=== PATIENT | male | born 1990 | race Two or more races ===

== ENCOUNTER 2017-04-30 19:23 | Emergency (ER) | payer SELFPAY ==
[~2017-04-30] VITALS: Ht 180.3 cm; Wt 70.0 kg
[2017-04-30 19:27] VITALS: BP 139/88; PULSE 88; RESP 15; TEMP 98.2; O2SAT 100
--- NOTE | 2017-04-30 21:44 | PD ---
HPI Chief Complaint: Abdominal Pain Time Seen by Provider: 21:41 Travel History International Travel<30 days: No Contact w/Intl Traveler<30days: No Traveled to known affect area: No History of Present Illness HPI 26-year-old male presents to emergency department with complaints of nausea, vomiting, abdominal pain and cramping. He states that he has had approximately 6 episodes of vomiting earlier today. Last episode around 3:00. He denies any fever or chills. No headache, runny nose, sore throat. He has had a slight cough. He states the pain is sharp and stabbing diffusely in the abdomen more so in the lower abdomen patient rates his pain a 7 -8/10 at its worse. Now it is mild. He has a small amount of loose stool but no significant diarrhea. No urinary symptoms. No rashes or lesions. He does note that he did have a hamburger around 2 or 3:00 this afternoon. PFSH Past Medical History Medical History: Denies Significant Hx Tetanus Vaccination: < 5 Years Past Surgical History Surgical History: No Previous Surgery Social History Alcohol Use: Yes Tobacco Use: Yes (1PPD) Substance Use: No Allergies-Medications (Allergen,Severity, Reaction): Coded Allergies: No Known Allergies (Unverified , 04/30/17) Reported Meds & Prescriptions Reported Meds & Active Scripts Active No Active Prescriptions or Reported Medications Review of Systems Except as stated in HPI: all other systems reviewed are Neg Physical Exam Narrative GENERAL: Well-developed, well-nourished in no acute distress. Nontoxic appearing. HEAD: Normocephalic, atraumatic. EYES: Pupils equal round and reactive. Extraocular motions intact. No scleral icterus. No injection or drainage. ENT: TMs clear without erythema. The external auditory canals clear. Nose: clear . Posterior pharynx is pink and moist. No tonsillar edema or exudate. Uvula midline. Airway patent. NECK: Trachea midline.Supple, nontender, moves head freely. No central bony tenderness or spasm. CARDIOVASCULAR: Regular rate and rhythm without murmurs, gallops, or rubs. RESPIRATORY: Clear to auscultation. Breath sounds equal bilaterally. No wheezes , rales, or rhonchi. GASTROINTESTINAL: Abdomen soft, non-tender, nondistended. No hepato-splenomegaly , or palpable masses. No guarding. EXTREMITIES: No clubbing, cyanosis, or edema. No joint tenderness, effusion, or edema noted. BACK: Nontender without deformity or crepitance. No flank tenderness. Data Data Last Documented VS Vital Signs Date Time Temp Pulse Resp B/P Pulse Ox O2 Delivery O2 Flow Rate FiO2 04/30/17 19:27 98.2 88 15 139/88 100 Room Air Orders Iv Access Insert/Monitor (04/30/17 21:39) Sodium Chlor 0.9% 1000 Ml Inj (Ns 1000 M (04/30/17 21:45) Diphenhydramine Inj (Benadryl Inj) (04/30/17 21:45) Metoclopramide Inj (Reglan Inj) (04/30/17 21:45) Hyoscyamine (Levsin) (04/30/17 21:45) Oral Rehydration (04/30/17 22:13) MDM Medical Decision Making Medical Screen Exam Complete: Yes Emergency Medical Condition: Yes Medical Record Reviewed: Yes Differential Diagnosis Differential diagnosis: Acute appendicitis, gastritis, peptic ulcer disease, GERD, gastroenteritis, dehydration Narrative Course IV access is obtained. Patient given a liter bolus of normal saline, 50 Nuria is a Benadryl and Reglan 10 mg IV. Levsin 0.25 mg sublingual. The patient's exam did not reveal any significant tenderness. No guarding or rebound. The patient will be symptomatic treatment here in the ER and reevaluated. The patient has taken by mouth fluids. He is feeling much better. He's been sleeping in examination room. He is awoken and he states that he is improved and would like to go home. This is vomiting, abdominal pain Diagnosis Primary Impression: Vomiting Qualified Code: R11.2 - Non-intractable vomiting with nausea, unspecified vomiting type Additional Impression: Abdominal pain Qualified Code: R10.84 - Generalized abdominal pain Patient Instructions: General Instructions Additional Instructions: Rest. Clear liquids for 24 hours. Tylenol or Advil for any pain. Recheck with the clinic at school tomorrow or return to the ER. Return to the ER sooner if any problems. Scripts No Active Prescriptions or Reported Meds Disposition: 01 DISCHARGE HOME Condition: Stable Lenny Ba Apr 30, 2017 21:44
[2017-04-30] MEDS ORDERED: diphenhydrAMINE HCL 50 MG/ML VIAL IV PUSH ONE (21:45)
[2017-04-30] MEDS ORDERED: METOCLOPRAMIDE HCL 10 MG/2 ML VIAL IV PUSH ONE (21:45)
[2017-04-30] MEDS ORDERED: HYOSCYAMINE 0.125 MG TAB SL ONE (21:45)
[2017-04-30] MEDS ORDERED: SODIUM CHLOR 0.9% 1000 ML INJ 1,000 ML IV ONE (21:45)
== END 2017-04-30 23:56 | disposition home or self-care (01) ==
LOC: NEPD 19:23
DX: R11.2 Nausea with vomiting, unspecified (principal); R10.84 Generalized abdominal pain
CPT/HCPCS: 96374; 96375; 99284; J1200; J2765; J7030

== ENCOUNTER 2017-05-06 03:50 | Emergency (ER) | payer OTHER ==
[2017-05-06 04:02] VITALS: BP 135/97; PULSE 106; RESP 18; TEMP 98.1; O2SAT 96
[2017-05-06 04:50] LABS: MEAN CORPUSCULAR HGB CONC 36.4 % (32.0-36.0)
[2017-05-06 05:11] LABS: AUTOMATED NEUTROPHIL # 4.9 TH/MM3 (1.8-7.7); BASOPHIL # 0.1 TH/MM3 (0-0.2); BASOPHIL % 0.9 % (0.0-2.0); EOSINOPHIL # 0.2 TH/MM3 (0-0.4); EOSINOPHIL % 1.8 % (0.0-4.0); LYMPH % 36.1 % (9.0-44.0); LYMPHOCYTE # 3.3 TH/MM3 (1.0-4.8); MONO % 7.8 % (0.0-8.0); NEUT % 53.4 % (16.0-70.0); PLATELET COUNT 227 TH/MM3 (150-450); RED BLOOD COUNT 4.99 MIL/MM3 (4.50-5.90); RED CELL DISTRIBUTION WIDTH 13.3 % (11.6-17.2); WHITE BLOOD COUNT 9.2 TH/MM3 (4.0-11.0)
--- NOTE | 2017-05-06 05:14 | PD ---
HPI Chief Complaint: Psychiatric Symptoms Time Seen by Provider: 05:12 Travel History International Travel<30 days: No Contact w/Intl Traveler<30days: No Traveled to known affect area: No History of Present Illness HPI Patient comes in under Hope act by police for reported suicidal ideations. Patient denies any suicidal or homicidal ideations. Patient states that he is drunk currently. Patient denies any medical concerns. Denies any chest pain, shortness breath, fevers, nausea, vomiting, or headache. Patient denies anything making his symptoms better or worse. [facility] Past Medical History Medical History: Denies Significant Hx Immunizations Current: Yes Past Surgical History Surgical History: No Previous Surgery Social History Alcohol Use: Yes Tobacco Use: Yes (1PPD) Substance Use: No Allergies-Medications (Allergen,Severity, Reaction): Coded Allergies: No Known Allergies (Unverified , 05/06/17) Reported Meds & Prescriptions Reported Meds & Active Scripts Active No Active Prescriptions or Reported Medications Review of Systems Except as stated in HPI: all other systems reviewed are Neg Physical Exam Narrative GENERAL: Well-developed, well nourished, in no acute distress, and non-ill appearing. SKIN: Focused skin assessment warm and dry. HEAD: Atraumatic. Normocephalic. EYES: Pupils equal and round. EOMI. No scleral icterus. No injection or drainage. ENT: No nasal bleeding or discharge. Mucous membranes pink and moist. NECK: Trachea midline. No JVD. Supple. No nuclear rigidity. CARDIOVASCULAR: Regular rate and rhythm. No murmur appreciated. RESPIRATORY: No accessory muscle use. No respiratory distress. Clear to auscultation. Breath sounds equal bilaterally. MUSCULOSKELETAL: No obvious deformities. No clubbing. No cyanosis. No edema. Full range of motion. NEUROLOGICAL: Awake and alert. No obvious cranial nerve deficits. Motor grossly within normal limits. Normal speech. PSYCHIATRIC: Appropriate mood and affect; insight and judgment normal. Data Data Last Documented VS Vital Signs Date Time Temp Pulse Resp B/P Pulse Ox O2 Delivery O2 Flow Rate FiO2 05/06/17 04:02 98.1 106 18 135/97 96 Orders Complete Blood Count With Diff (05/06/17 04:49) Comprehensive Metabolic Panel (05/06/17 04:49) Psych Screen (05/06/17 04:49) Drug Screen, Random Urine (05/06/17 04:49) Alcohol (Ethanol) (05/06/17 04:49) Salicylates (Aspirin) (05/06/17 04:49) Tylenol (Acetaminophen) (05/06/17 04:49) Labs Laboratory Tests Test 05/06/17 04:55 White Blood Count 9.2 TH/MM3 Red Blood Count 4.99 MIL/MM3 Hemoglobin 16.0 GM/DL Hematocrit 44.0 % Mean Corpuscular Volume 88.0 FL Mean Corpuscular Hemoglobin 32.0 PG Mean Corpuscular Hemoglobin 36.4 % Concent Red Cell Distribution Width 13.3 % Platelet Count 227 TH/MM3 Mean Platelet Volume 8.8 FL Neutrophils (%) (Auto) 53.4 % Lymphocytes (%) (Auto) 36.1 % Monocytes (%) (Auto) 7.8 % Eosinophils (%) (Auto) 1.8 % Basophils (%) (Auto) 0.9 % Neutrophils # (Auto) 4.9 TH/MM3 Lymphocytes # (Auto) 3.3 TH/MM3 Monocytes # (Auto) 0.7 TH/MM3 Eosinophils # (Auto) 0.2 TH/MM3 Basophils # (Auto) 0.1 TH/MM3 CBC Comment AUTO DIFF Sodium Level 144 MEQ/L Potassium Level 3.6 MEQ/L Chloride Level 110 MEQ/L Carbon Dioxide Level 23.1 MEQ/L Anion Gap 11 MEQ/L Blood Urea Nitrogen 9 MG/DL Creatinine 1.05 MG/DL Estimat Glomerular Filtration 86 ML/MIN Rate Random Glucose 92 MG/DL Calcium Level 8.9 MG/DL Total Bilirubin 0.4 MG/DL Aspartate Amino Transf 22 U/L (AST/SGOT) Alanine Aminotransferase 24 U/L (ALT/SGPT) Alkaline Phosphatase 73 U/L Total Protein 8.4 GM/DL Albumin 4.6 GM/DL Salicylates Level LESS THAN 1.7 MG/DL Urine Opiates Screen NEG Acetaminophen Level LESS THAN 2.0 MCG/ML Urine Barbiturates Screen NEG Urine Amphetamines Screen NEG Urine Benzodiazepines Screen NEG Urine Cocaine Screen NEG Urine Cannabinoids Screen NEG Ethyl Alcohol Level 210 MG/DL MDM Medical Decision Making Medical Screen Exam Complete: Yes Emergency Medical Condition: Yes Differential Diagnosis Homicidal, suicidal, alcohol intoxication, substance abuse, depression, other Narrative Course Patient was seen and examined. Labs were obtained and reviewed. Patient medically cleared for further treatment and evaluation by psych. Final disposition per psych. Diagnosis Primary Impression: Alcohol intoxication Qualified Code: F10.920 - Alcohol intoxication, uncomplicated Additional Impression: Medical clearance for psychiatric admission Scripts No Active Prescriptions or Reported Meds Condition: Stable Xu Griffin May 06, 2017 05:14
[2017-05-06 05:21] LABS: AMPHETAMINE, URINE NEG (NEG); BARBITURATES, URINE NEG (NEG); COCAINE, URINE NEG (NEG)
[2017-05-06 05:24] LABS: HEMO FLAGS AUTO DIFF
[2017-05-06 05:26] LABS: ALT (GPT) 24 U/L (12-78); ANION GAP 11 MEQ/L (5-15); AST (GOT) 22 U/L (15-37); BICARBONATE 23.1 MEQ/L (21.0-32.0); BLOOD UREA NITROGEN 9 MG/DL (7-18); CHLORIDE 110 MEQ/L (98-107); GLOMERULAR FILTRATION RATE 86 ML/MIN (>89); POTASSIUM 3.6 MEQ/L (3.5-5.1); SODIUM (NA) 144 MEQ/L (136-145)
[2017-05-06 05:28] LABS: ALKALINE PHOSPHATASE 73 U/L (45-117); TOTAL BILIRUBIN ADULT 0.4 MG/DL (0.2-1.0)
[2017-05-06 05:34] LABS: ACETAMINOPHEN LESS THAN 2.0 MCG/ML (10.0-30.0)
[2017-05-06 05:59] LABS: PLATELET ESTIMATE SMEAR NORMAL (NORMAL); PLATELET MORPHOLOGY NORMAL (NORMAL); SCAN/DIFF AUTO DIFF CONFIRMED
[2017-05-06 07:16] VITALS: BP 112/62; PULSE 96; RESP 20; O2SAT 96
--- NOTE | 2017-05-06 17:34 | PD ---
History of Present Illness Chief Complaint: Psychiatric Symptoms Time Seen by Provider: 17:20 Travel History International Travel<30 Days: No Contact w/Intl Traveler<30days: No Known affected area: No Legal Status Legal Status: Hope Act Hope Act Signed By: Dudley Queen History of Present Illness: History of Present Illness HPI Patient is a 26 year old male with no previous psychiatric history who comes in under a Hope act initiated by LAURA. The report alleges that the patient was being kicked out of flight school and that he stated that he would rather than bring shame to his family. The patient was intoxicated with BAl of 210 on presentation to ED. No previous contact with [facility] psychiatry. The patient is now clinically sober. He is alert and oriented. Clear speech. ambulates well without gait impairment. No psychosis. No amy. Not depressed. He denies any suicidal or homicidal ideation, intent or plan. States that he is not being kicked out of school but rather being kicked out of his apartment. He has already contacted a friend to look for housing. he denies any suicidal ideation and feels relief since his toxicology is negative. The reason why he was asked to leave his apartment was due to a positive urine test. De denies any use of substances as well as denying that he drinks on a daily basis. PFSH Past Medical History Medical History: Denies Significant Hx Immunizations Current: Yes Past Surgical History Surgical History: No Previous Surgery Psychiatric History Psychiatric History Hx Psychiatric Treatment: Negative History of Inpatient Treatment: No Guns or firearms in home: No Social History Single male from [place]. here attending flight school. Hx Alcohol Use: Yes Hx Tobacco Use: Yes (1PPD) Hx Substance Use: No Hx of Substance Use Treatment: No Family Psychiatric History Negative Allergies-Medications (Allergen,Severity, Reaction): Coded Allergies: No Known Allergies (Unverified , 05/06/17) Reported Meds & Prescriptions Reported Meds & Active Scripts Active No Active Prescriptions or Reported Medications Review of Systems Except as stated in HPI: all other systems reviewed are Neg Exam Alert: Yes [place]: Person (ox4) Mood: Calm Affect: Appropriate Speech: Clear, Logical Eye Contact: Normal Memory Intact: Comment (no impairmetn) Hallucinations: Other (negative) Delusions: No Suicidal: Ideation (deneis any) Homicidal: Ideation (deneis any) Insight/Judgement Fair. Not impaired. [facility] Medical Decision Making Medical Record Reviewed: Yes Assessment/Plan 26 year old male with no hx of psychiatric illness who is under a BA after he allegedly verbalized his intent to kill himself. The patient was intoxicated when he made the statement. He is now clinically sober and does not present any suicidality. he is future oriented. At this tiem does not meet criteria for BA. Counseled re use of alcohol. Will lift. Orders Complete Blood Count With Diff (05/06/17 04:49) Comprehensive Metabolic Panel (05/06/17 04:49) Psych Screen (05/06/17 04:49) Drug Screen, Random Urine (05/06/17 04:49) Alcohol (Ethanol) (05/06/17 04:49) Salicylates (Aspirin) (05/06/17 04:49) Tylenol (Acetaminophen) (05/06/17 04:49) Diet Regular Basic (05/06/17 Breakfast) Diet Regular Basic (05/06/17 Dinner) Results Vital Signs Date Time Temp Pulse Resp B/P Pulse Ox O2 Delivery O2 Flow Rate FiO2 05/06/17 07:16 96 20 112/62 96 Room Air 05/06/17 04:02 98.1 106 18 135/97 96 Laboratory Tests Test 05/06/17 04:55 White Blood Count 9.2 Red Blood Count 4.99 Hemoglobin 16.0 Hematocrit 44.0 Mean Corpuscular Volume 88.0 Mean Corpuscular Hemoglobin 32.0 Mean Corpuscular Hemoglobin 36.4 Concent Red Cell Distribution Width 13.3 Platelet Count 227 Mean Platelet Volume 8.8 Neutrophils (%) (Auto) 53.4 Lymphocytes (%) (Auto) 36.1 Monocytes (%) (Auto) 7.8 Eosinophils (%) (Auto) 1.8 Basophils (%) (Auto) 0.9 Neutrophils # (Auto) 4.9 Lymphocytes # (Auto) 3.3 Monocytes # (Auto) 0.7 Eosinophils # (Auto) 0.2 Basophils # (Auto) 0.1 CBC Comment AUTO DIFF Differential Comment AUTO DIFF CONFIRMED Platelet Estimate NORMAL Platelet Morphology Comment NORMAL Red Cell Morphology Comment NORMAL Sodium Level 144 Potassium Level 3.6 Chloride Level 110 Carbon Dioxide Level 23.1 Anion Gap 11 Blood Urea Nitrogen 9 Creatinine 1.05 Estimat Glomerular Filtration 86 Rate Random Glucose 92 Calcium Level 8.9 Total Bilirubin 0.4 Aspartate Amino Transf 22 (AST/SGOT) Alanine Aminotransferase 24 (ALT/SGPT) Alkaline Phosphatase 73 Total Protein 8.4 Albumin 4.6 Salicylates Level LESS THAN 1.7 Urine Opiates Screen NEG Acetaminophen Level LESS THAN 2.0 Urine Barbiturates Screen NEG Urine Amphetamines Screen NEG Urine Benzodiazepines Screen NEG Urine Cocaine Screen NEG Urine Cannabinoids Screen NEG Ethyl Alcohol Level 210 Diagnosis Primary Impression: Alcohol intoxication Psychiatrically Cleared: Yes Departure Forms: School Release, Return to School Date: May 07, 2017 Tests/Procedures Patient Instructions: General Instructions, Alcohol Intoxication (ED) Med/ Other Pt Specific Info: No Meds Exist/No RX given Prescriptions No Active Prescriptions or Reported Meds Disposition: 01 DISCHARGE HOME Condition: Stable Problem Qualifiers Primary Impression: Alcohol intoxication Qualified Code: F10.920 - Alcohol intoxication, uncomplicated Yany Plascencia [facility] May 06, 2017 17:34
== END 2017-05-06 18:20 | disposition home or self-care (01) ==
LOC: NEPD 03:50 → NEPJ 18:20
DX: Z02.89 Encounter for other administrative examinations (principal); F10.920 Alcohol use, unspecified with intoxication, uncomplicated; F17.200 Nicotine dependence, unspecified, uncomplicated
CPT/HCPCS: 80053; 80307; 85025; 99284

== ENCOUNTER 2017-05-18 14:04 | Emergency (ER) | payer SELFPAY ==
[~2017-05-18] VITALS: Ht 182.9 cm; Wt 67.2 kg
[2017-05-18 14:13] VITALS: BP 126/68; PULSE 120; RESP 18; TEMP 97.9; O2SAT 100
[2017-05-18] MEDS ORDERED: TETANUS/DIPHTHERIA TOXOID ADULT 0.5 ML VIAL IM ONE (14:45)
[2017-05-18] MEDS ORDERED: ACETAMINOPHEN 500 MG CPLT PO ONE (15:00)
--- NOTE | 2017-05-18 15:01 | PD ---
HPI Chief Complaint: Injury Time Seen by Provider: 14:27 Travel History International Travel<30 days: No Contact w/Intl Traveler<30days: No Traveled to known affect area: No History of Present Illness HPI To 27-year-old man presents emergency department complaining of hand pain. He states he was holding a glass of both his hands when a glass broke under pressure from holding it. He had multiple cuts on his hands from that. His largest cut is on the base of the distal hand and the left middle finger. He states that he has pain in the finger and refuses to move it arrange or be examined at all. He also has a small cut over the dorsum of the left hand between the fourth and fifth knuckle. He explicitly denies being involved in an altercation or punching or fight bite type injury. History Past Medical History Medical History: Denies Significant Hx Tetanus Vaccination: Unknown Past Surgical History Surgical History: No Previous Surgery Social History Alcohol Use: Yes Tobacco Use: Yes (1PPD) Allergies-Medications (Allergen,Severity, Reaction): Coded Allergies: No Known Allergies (Unverified , 05/18/17) Reported Meds & Prescriptions Reported Meds & Active Scripts Active No Active Prescriptions or Reported Medications Review of Systems Except as stated in HPI: all other systems reviewed are Neg Physical Exam Narrative GENERAL: 27 year old man, no acute distress. SKIN: Warm and dry. CARDIOVASCULAR: Warm and well perfused. RESPIRATORY: Normal rate and effort. MUSCULOSKELETAL: Examination of the right hand reveals multiple small scratches and cuts on the dorsum of the hand and the arm. He is able to fully range the hand. There is full strength. Sensation is intact. There is no limitation in his range of motion. He does have a small cut on the dorsum of the hand near the fifth knuckle MCP joint that's well approximated without bleeding. There is some ecchymosis and bruising on the hand lateral lateral aspect of the dorsum of the hand as well. Examination of the left hand reveals guarding of the left middle finger. The laceration near the base of the finger and the MCP joint. About a centimeter or so. Is well approximated. There is no bleeding. He has bruising of the hand and the finger. He won't allow to examine. He will not allow strength or tendon testing. He holds it extended with a slight amount of flexion. The other 4 fingers. Normally. The fourth finger is a little bit difficult to examine because was proximity to the third but does not appear to have any obvious tendinous or ligamentous injuries. There is good perfusion to the entire hand. Data Data Last Documented VS Vital Signs Date Time Temp Pulse Resp B/P Pulse Ox O2 Delivery O2 Flow Rate FiO2 05/18/17 14:13 97.9 120 18 126/68 100 Orders Hand, Complete ([id number]) (05/18/17 ) Hand, Complete ([id number]) (05/18/17 ) Tetanus/Diphtheria Tox Adult (Tetanus/Di (05/18/17 14:45) Acetaminophen (Tylenol) (05/18/17 15:00) Amoxicil-Clavulanate (Augmentin) (05/18/17 15:15) Lidocaine 1% Inj (50 Ml) (Xylocaine 1% I (05/18/17 15:15) MDM Medical Decision Making Medical Screen Exam Complete: Yes Emergency Medical Condition: Yes Differential Diagnosis Hand injury, tendon injury, infection, retained glass, flight bite type injury, other Narrative Course Medical decision making INITIAL: This is a 27 year woman who presents to the emergency department with bilateral hand injuries. History is a little bit suspicious. He states he was holding a glass of tightly of broke and shattered in his hand. He has cuts on the x-rays of his hands as well. Denies fight bite type injury. He has a laceration the base of the middle finger. Possible fracture in the hand. We' ll check x-ray, check for foreign body, may need to be reexamined after anesthesia. I don't see any foreign bodies or fractures on his x-rays. I performed a digital block on the left hand middle finger. Following this he is able to participate some for strength exam. He appears to have intact flexor strength in the PIP and DIP and MCP. Patient is high risk for infection. His wound was irrigated out by myself with sterile saline. Smith placed on antibiotic prophylaxis. Procedures Procedure Narrative Digital block: Following informed consent, area of the left hand on the left and right of the MCP joint of the third finger was prepped with alcohol. A total of 4 mL's of 1 % lidocaine was injected on either side of the knuckle using standard technique for ring block. Patient tolerated well. Good anesthesia resulted. Diagnosis Primary Impression: Laceration of left hand Additional Instructions: Keep wound clean and dry. Wash wound twice daily with soap and water. Apply antibiotic ointment all open wounds. Take Augmentin as prescribed. Return to the emergency department immediately for any worsening pain redness swelling drainage fevers or any other new or worsening symptoms. Med/Other Pt SpecificInfo: Prescription(s) given Scripts Amoxicillin-Clavulanate (Augmentin)875-125 Mg Tab1 Tab PO BID 7 Days Ref 0 Prov:Efrain Borrego MD 05/18/17 Disposition: 01 DISCHARGE HOME Condition: Stable Efrain Borrego MD May 18, 2017 15:01
[2017-05-18] MEDS ORDERED: AMOXICILLIN/CLAVULANATE K 875 MG TAB PO ONE (15:15)
[2017-05-18] MEDS ORDERED: LIDOCAINE HCL 1% 50 ML VIAL INFIL ONE (15:15)
--- NOTE | 2017-05-18 15:44 | RADRPT ---
EXAM DATE/TIME: 05/18/2017 14:49 [facility] COMPARISON: No previous studies available for comparison. INDICATIONS : Laceration to posterior 5th MPJ. MEDICAL HISTORY : None. SURGICAL HISTORY : None. ENCOUNTER: Initial ACUITY: 1 day PAIN SCORE: 9/10 LOCATION: Right hand FINDINGS: Three views the right hand demonstrate no fracture or dislocation. Mineralization is within normal li mits and there is no significant arthropathy. No radiopaque foreign body is identified. There is mild soft tissue swelling posteriorly adjacent to the fifth metacarpophalangeal joint. CONCLUSION: Mild posterior soft tissue swelling adjacent to the fifth MCP joint. No radiopaque foreign body is vi sualized. Juan Pepe MD on May 18, 2017 at 15:41 Board Certified Radiologist. This report was verified electronically.
[2017-05-18] MEDS ORDERED: AUGM875T3 PO (15:47)
--- NOTE | 2017-05-18 16:04 | RADRPT ---
EXAM DATE/TIME: 05/18/2017 14:47 [facility] COMPARISON: No previous studies available for comparison. INDICATIONS : Laceration/glass embedded in palmar surface of hand near 3rd & 4th MPJ. MEDICAL HISTORY : None. SURGICAL HISTORY : None. ENCOUNTER: Initial ACUITY: 1 day PAIN SCORE: 10/10 LOCATION: Left hand FINDINGS: Three views of the left hand demonstrate no fracture or dislocation. Mineralization is within normal limits and there is no significant arthropathy. No soft tissue abnormality or radiopaque foreign body is identified. CONCLUSION: No acute abnormality is identified. No radiopaque foreign body is seen. Juan Pepe MD on May 18, 2017 at 16:01 Board Certified Radiologist. This report was verified electronically.
== END 2017-05-18 16:26 | disposition home or self-care (01) ==
LOC: PHEFT 14:04
DX: S61.412A Laceration without foreign body of left hand, initial encounter (principal); W25.XXXA Contact with sharp glass, initial encounter; Y92.009 Unspecified place in unspecified non-institutional (private) residence as the place of occurrence of the external cause; Z72.0 Tobacco use; Z23 Encounter for immunization
CPT/HCPCS: 64450; 73130; 90471; 90714